=== PATIENT | male | born 1950 | race American Indian/Alaskan Native ===

== ENCOUNTER 2023-08-09 04:36 | Day surgery (SDC) | payer OTHER, BC ==
[2023-07-30 10:15] VITALS: BMI 25.5
[2023-08-09] MEDS ORDERED: ceFAZolin SODIUM 1 GM VIAL ONE (06:35)
[2023-08-09] MEDS ORDERED: HEPARIN NA (PORCINE) 5,000 UNITS/ML 1ML VIAL ONE (07:16)
[2023-08-09] MEDS ORDERED: cefOXitin SODIUM 2 GM VIAL (RESTRICTED TO ID) IVPB ONE (07:16)
[2023-08-09] MEDS ORDERED: BUPIVACAINE HCL/PF 0.25% (2.5MG/ML) 10 ML VIAL ONE (07:16)
[2023-08-09] MEDS ORDERED: LIDOCAINE HCL/PF 2% SDV 5ML VIAL ONE (07:41)
[2023-08-09] MEDS ORDERED: PROPOFOL 60 ML ONE (07:41)
[2023-08-09] MEDS ORDERED: ROCURONIUM BROMIDE 50 MG/5 ML VIAL ONE ×2 (07:42→09:57)
[2023-08-09] MEDS ORDERED: SUCCINYLCHOLINE CHLORIDE 200 MG/10 ML SYRINGE ONE ×2 (07:42→12:42)
[2023-08-09] MEDS ORDERED: FENTANYL CITRATE/PF 50 MCG/ML VIAL ONE ×3 (07:42→11:56)
[2023-08-09] MEDS ORDERED: MIDAZOLAM HCL 2 MG/2 ML SINGLE DOSE VIAL ONE (07:42)
[2023-08-09] MEDS: ceFAZolin SODIUM 1 GM VIAL IVPB ONE ×2 (08:20)
[2023-08-09] MEDS: BUPIVACAINE HCL/PF 0.25% (2.5MG/ML) 10 ML VIAL IJ ONE ×3 (08:41)
[2023-08-09] MEDS ORDERED: SUGAMMADEX SODIUM 200 MG/2 ML VIAL ONE (11:34)
[2023-08-09] MEDS ORDERED: oxyCODONE HCL 5 MG TABLET PO PRN (11:55)
[2023-08-09] MEDS ORDERED: ONDANSETRON 4 MG/2 ML VIAL IVPUSH PRN (11:55)
[2023-08-09] MEDS: LACTATED RINGERS SOLUTION 1,000 ML IV SCH (12:00)
[2023-08-09] MEDS ORDERED: ACETAMINOPHEN INJECTION 100 ML IVPB ONE (14:05)
[2023-08-09] MEDS: CEFAZOLIN SODIUM 2 GM in DEXTROSE 5%-WATER 100 ML IVPB ONE (14:12)
[2023-08-09 14:31] VITALS: RESP 20; TEMP 97.1
[2023-08-09] MEDS ORDERED: oxyCODONE HCL 5 MG TABLET ONE (15:54)
[2023-08-09 17:09] VITALS: BP 110/52; PULSE 58
== END 2023-08-09 16:40 | disposition home or self-care (01) ==
LOC: JASU-SURG 04:36
PROVIDERS: ATTEND Surgery
PROC: 8E0W4CZ Robotic Assisted Procedure of Trunk Region, Percutaneous Endoscopic Approach (ICD-10-PCS; 2023-08-09)
PROC: 0YU64JZ Supplement Left Inguinal Region with Synthetic Substitute, Percutaneous Endoscopic Approach (ICD-10-PCS; principal; 2023-08-09 08:00)
DX: K40.31 Unilateral inguinal hernia, with obstruction, without gangrene, recurrent (principal); K45.0 Other specified abdominal hernia with obstruction, without gangrene
CPT/HCPCS: 49651; S2900; 82962; 86850; 86900; 86901; 94760; C1781; J0131; J1644